=== PATIENT | male | born 1965 | race Caucasian/White ===

== ENCOUNTER 2022-06-13 16:41 | Emergency (ER) | payer BC ==
[~2022-06-13] VITALS: Ht 182.9 cm; Wt 86.4 kg
[2022-06-13 16:49] VITALS: TEMP 98.4
[2022-06-13 17:07] LABS: HEMATOCRIT 48.5 % (42.0-52.0); HEMOGLOBIN 17.5 g/dl (13.5-18.0); MEAN CELL VOLUME 85 fl (80.0-100.0); MEAN CORPUSCULAR HEMOGLOBIN 31 pg (27-31); MEAN CORPUSCULAR HGB CONC 36 g/dl (33.0-37.0); MEAN PLATELET VOLUME 9.3 fl (7.4-10.4); PLATELET COUNT 293 K/mm3 (130-400); RED BLOOD COUNT 5.68 M/mm3 (4.20-5.60); REDCELL DISTRIBUTION WIDTH-CV 12.5 % (11.5-14.5)
[2022-06-13 17:25] LABS: ALBUMIN 3.3 gm/dL (3.5-5.0); BILIRUBIN,TOTAL 0.4 mg/dL (0.2-1.2); CREATININE, serum 1.11 mg/dL (0.72-1.25); POTASSIUM 4.1 mmol/L (3.5-4.5); TOTAL PROTEIN 9.1 gm/dL (6.2-8.1)
[2022-06-13 17:59] LABS: BAND 1 % (0-10); LYMPHOCYTE 35 % (20.0-51.0); NEUTROPHILS 56 % (42.0-75.2); PLATELET ESTIMATE NORMAL (NORMAL)
[2022-06-13] MEDS ORDERED: GLUCOPHAGE500 MG/TAB PO (18:35)
[2022-06-13 19:02] VITALS: BP 132/81; PULSE 74
== END 2022-06-13 19:02 | disposition home or self-care (01) ==
LOC: COL.ER 16:41
PROVIDERS: Personal Emergency Response Attendant
DX: E11.65 Type 2 diabetes mellitus with hyperglycemia (principal); Z91.128 Patient's intentional underdosing of medication regimen for other reason; Z28.311 Partially vaccinated for COVID-19
CPT/HCPCS: J7030

== ENCOUNTER 2023-04-04 08:58 | Inpatient (IN) | payer BC ==
[~2023-04-04] VITALS: Ht 182.9 cm; Wt 84.1 kg
[~2023-04-04 08:58] MED LIST: ADVIL LIQUI-GE200 MG PO; ASPIRIN 81M81 MG/TA2 PO; BIKTARVY 50-201 EACH PO; FARXIGA5 PO; GLUCOPHAGE500 MG/TAB PO; LIPITOR 80MG80 MG PO; PRINIVIL5 MG PO; TOPROL XL 25MG25 MG PO
[2023-04-04] MEDS ORDERED: LR 1,000 ML IV ONE ×2 (09:45→10:30)
[2023-04-04] MEDS ORDERED: Ketorolac 30 MG/ML VIAL IV ONE (09:45)
[2023-04-04 09:47] LABS: HEMATOCRIT 48.8 % (42.0-52.0); HEMOGLOBIN 17.9 g/dl (13.5-18.0); MEAN CELL VOLUME 86 fl (80.0-100.0); MEAN CORPUSCULAR HEMOGLOBIN 32 pg (27-31); MEAN CORPUSCULAR HGB CONC 37 g/dl (33.0-37.0); MEAN PLATELET VOLUME 9.7 fl (7.4-10.4); PLATELET COUNT 274 K/mm3 (130-400); RED BLOOD COUNT 5.67 M/mm3 (4.20-5.60); REDCELL DISTRIBUTION WIDTH-CV 12.1 % (11.5-14.5)
[2023-04-04 10:07] LABS: COLLECTION METHOD CLEAN CATCH
[2023-04-04] MEDS ORDERED: Iohexol 300 - 100 ML VIAL IV ONE (10:15)
[2023-04-04] MEDS ORDERED: NS 100 ML IV SCH (10:16)
[2023-04-04 10:20] LABS: URINE APPEARANCE CLEAR (CLEAR/HAZY); URINE BLOOD 1+ (NEGATIVE); URINE COLOR YELLOW (YELLOW); URINE GLUCOSE 3+ (NEGATIVE); URINE KETONE NEGATIVE (NEGATIVE); URINE NITRATE NEGATIVE (NEGATIVE); URINE PROTEIN(semi-quant) 3+ (NEGATIVE); URINE UROBILINOGEN 0.2 E.U/dL (0.2-1.0)
[2023-04-04 10:21] LABS: ALBUMIN 2.9 gm/dL (3.5-5.0); BILIRUBIN,TOTAL 0.7 mg/dL (0.2-1.2); CALCIUM 9.5 mg/dL (8.4-10.2); CREATININE, serum 1.26 mg/dL (0.72-1.25); POTASSIUM 4.5 mmol/L (3.5-4.5); TOTAL PROTEIN 9.1 gm/dL (6.2-8.1)
[2023-04-04 10:30] LABS: BAND 3 % (0-10); EOSINOPHIL 1 % (0-4); LYMPHOCYTE 28 % (20.0-51.0); METAMYELOCYTE 1 % (0-0); NEUTROPHILS 63 % (42.0-75.2); PLATELET ESTIMATE NORMAL (NORMAL)
[2023-04-04] MEDS ORDERED: Insulin Regular Human (NovoLIN R/HumuLIN R) SQ ONE (10:30)
[2023-04-04 10:35] LABS: TROPONIN-I 0.528 ng/mL (0.00-0.033)
[2023-04-04 11:10] VITALS: BP 156/95; PULSE 81
[2023-04-04 12:45] VITALS: BP 146/88; PULSE 72
== END 2023-04-04 14:00 | disposition left against medical advice (07) | DRG 313 ==
LOC: COL.ER 08:58 → MEDICAL 10:48
PROVIDERS: Emergency Medicine; ADMIT Internal Medicine
DX: R07.9 Chest pain, unspecified (principal); N17.9 Acute kidney failure, unspecified; N18.9 Chronic kidney disease, unspecified; E11.9 Type 2 diabetes mellitus without complications; Z79.4 Long term (current) use of insulin; I25.10 Atherosclerotic heart disease of native coronary artery without angina pectoris; I10 Essential (primary) hypertension; E78.5 Hyperlipidemia, unspecified; Z21 Asymptomatic human immunodeficiency virus [HIV] infection status
CPT/HCPCS: J1815; J1885; J7120; Q9967